=== PATIENT | female | born 1990 | race Caucasian/White ===

== ENCOUNTER 2017-05-20 08:15 | Emergency (ER) | payer MEDICAID, OTHER | END 2017-05-20 09:18 | disposition home or self-care (01) | LOC: FTE 08:15 | DX: R05 Cough (principal) | CPT/HCPCS: 99283; Z7502 ==

== ENCOUNTER 2017-07-15 14:34 | Emergency (ER) | payer MEDICAID ==
[2017-07-15] MEDS: ALBUTEROL 0.083% (NEB) 2.5 MG/3 ML AMP HHN (16:08)
[2017-07-15] MEDS: IPRATROPIUM (NEB) 0.5 MG/2.5 ML AMP HHN (16:30)
== END 2017-07-15 18:49 | disposition home or self-care (01) ==
LOC: FTE 14:34
DX: J20.9 Acute bronchitis, unspecified (principal); R06.02 Shortness of breath
CPT/HCPCS: 71045; 93005; 94664; 99284-25

== ENCOUNTER 2018-07-10 10:41 | Emergency (ER) | payer MEDICAID ==
[2018-07-10] MEDS: ACETAMINOPHEN 325 MG TAB PO (11:50)
== END 2018-07-10 12:49 | disposition home or self-care (01) ==
LOC: FTE 10:41
DX: J10.1 Influenza due to other identified influenza virus with other respiratory manifestations (principal)
CPT/HCPCS: 87400; 99283

== ENCOUNTER 2018-07-31 18:07 | Inpatient (IN) | payer MEDICAID ==
[~2018-07-31 18:07] MED LIST: PHENYLephrine 10 MG INJ
[2018-07-31] MEDS: LACTATED RINGER'S 1,000 ML IV (18:55)
[2018-07-31] MEDS ORDERED: OXYTOCIN 30 UNITS/LR 500 ML IV ×2 (19:00→22:16)
[2018-07-31] MEDS ORDERED: MISOPROSTOL 200 MCG TAB PR (19:00)
[2018-07-31] MEDS ORDERED: METHYLERGONOVINE 0.2 MG INJ IM (19:00)
[2018-07-31] MEDS ORDERED: CARBOPROST 250 MCG INJ IM (19:00)
[2018-07-31] MEDS ORDERED: CEFAZOLIN 2 GM/50 ML (PMX) 50 ML IVPB (19:00)
[2018-07-31 19:02] LABS: ADD MAN DIFF? NO
[2018-07-31 19:06] LABS: BASOPHILS % 0.3 % (0.0-2.0); EOSINOPHILS # 0.2 10^3/ul (0.0-0.5); EOSINOPHILS % 1.5 % (0.0-7.0); HEMOGLOBIN 12.2 g/dl (12.0-16.0); LYMPHOCYTES # 2.3 10^3/ul (0.8-2.9); LYMPHOCYTES % 20.2 % (15.0-51.0); MEAN CORPUSCULAR HEMOGLOBIN 27.4 pg (29.0-33.0); MEAN CORPUSCULAR HGB CONC 33.9 g/dl (32.0-37.0); MEAN CORPUSCULAR VOLUME 80.7 fl (82.0-101.0); MEAN PLATELET VOLUME 9.4 fl (7.4-10.4); MONOCYTE # 0.7 10^3/ul (0.3-0.9); NEUTROPHIL # 8.3 10^3/ul (1.6-7.5); NEUTROPHILS % 71.1 % (39.0-77.0); PLATELET COUNT 306 10^3/UL (140-415); RED BLOOD COUNT 4.46 10^6/ul (4.20-5.40); RED CELL DISTRIBUTION WIDTH 14.5 % (11.5-14.5)
[2018-07-31 19:06] LABS: WHITE BLOOD COUNT 11.6 10^3/ul (4.8-10.8)
[2018-07-31 19:26] LABS: INR 0.94; PROTIME 12.7 Sec (11.9-14.9)
[2018-07-31 19:27] LABS: PARTIAL THROMBOPLASTIN TIME 26.8 Sec (23.0-35.0)
[2018-07-31 19:54] LABS: HEPATITIS B SURFACE ANTIGEN NEGATIVE (NEGATIVE)
[2018-07-31] MEDS: CITRIC ACID/NA CITRATE 30 ML CUP PO (20:11)
[2018-07-31] MEDS ORDERED: morphine SULFATE/PF (10 MG/10 ML) INJ (22:16)
[2018-07-31] MEDS ORDERED: KETOROLAC 30 MG INJ (22:16)
[2018-07-31] MEDS ORDERED: METOCLOPRAMIDE 10 MG INJ (22:16)
[2018-07-31] MEDS ORDERED: ONDANSETRON 4 MG INJ (22:16)
[2018-08-01] MEDS ORDERED: ONDANSETRON 4 MG INJ IV ×2
[2018-08-01] MEDS ORDERED: DIPHENHYDRAMINE 50 MG INJ IV ×2
[2018-08-01] MEDS ORDERED: morphine (1 MG/ML) 10ML SYRINGE IV ×3
[2018-08-01] MEDS ORDERED: morphine 2 MG INJ IV ×3
[2018-08-01] MEDS ORDERED: NALOXONE (0.4 MG/ML) INJ IV
[2018-08-01] MEDS: OXYTOCIN 30 UNITS/LR 500 ML IV ×2 (00:26→04:31)
[2018-08-01] MEDS: DEXTROSE 5%-LR 1,000 ML IV ×3 (02:02→14:12)
[2018-08-01] MEDS ORDERED: OXYTOCIN 30 UNITS/LR 500 ML IV (02:30)
[2018-08-01] MEDS ORDERED: METHYLERGONOVINE 0.2 MG INJ IM (02:30)
[2018-08-01] MEDS ORDERED: CARBOPROST 250 MCG INJ IM (02:30)
[2018-08-01] MEDS ORDERED: METHYLERGONOVINE 0.2 MG TAB PO (02:30)
[2018-08-01] MEDS ORDERED: MISOPROSTOL 200 MCG TAB PR (02:30)
[2018-08-01 08:23] LABS: ADD MAN DIFF? NO
[2018-08-01 08:33] LABS: WHITE BLOOD COUNT 11.5 10^3/ul (4.8-10.8)
[2018-08-01 08:34] LABS: BASOPHILS % 0.1 % (0.0-2.0); EOSINOPHILS # 0.1 10^3/ul (0.0-0.5); EOSINOPHILS % 0.6 % (0.0-7.0); HEMATOCRIT 29.5 % (37.0-47.0); HEMOGLOBIN 9.7 g/dl (12.0-16.0); LYMPHOCYTES # 1.7 10^3/ul (0.8-2.9); LYMPHOCYTES % 14.7 % (15.0-51.0); MEAN CORPUSCULAR HEMOGLOBIN 26.9 pg (29.0-33.0); MEAN CORPUSCULAR HGB CONC 32.9 g/dl (32.0-37.0); MEAN CORPUSCULAR VOLUME 81.7 fl (82.0-101.0); MEAN PLATELET VOLUME 9.6 fl (7.4-10.4); MONOCYTE # 0.6 10^3/ul (0.3-0.9); MONOCYTES % 4.9 % (0.0-11.0); NEUTROPHIL # 9.1 10^3/ul (1.6-7.5); NEUTROPHILS % 79.1 % (39.0-77.0); PLATELET COUNT 238 10^3/UL (140-415); RED BLOOD COUNT 3.61 10^6/ul (4.20-5.40); RED CELL DISTRIBUTION WIDTH 14.3 % (11.5-14.5)
[2018-08-01] MEDS ORDERED: DIPHTH/TET/ACEL PERTUSS (ADULT) 0.5 ML VIAL IM* (11:00)
[2018-08-01 14:44] LABS: RAPID PLASMA REAGIN NONREACTIVE (NR)
[2018-08-01] MEDS: KETOROLAC 30 MG INJ IV (17:28)
[2018-08-01] MEDS: IBUPROFEN 800 MG TAB PO (23:06)
[2018-08-01] MEDS: HYDROCODONE/APAP (5/325) TAB PO (23:06)
[2018-08-01] MEDS: SENNA/DOCUSATE NA (8.6MG/50MG) TAB PO (23:09)
[2018-08-02] MEDS: DEXTROSE 5%-LR 1,000 ML IV ×2 (01:16→02:02)
[2018-08-02] MEDS ORDERED: IBUPROFEN 800 MG TAB PO (06:00)
[2018-08-02] MEDS ORDERED: HYDROCODONE/APAP (5/325) TAB PO ×2 (06:00)
[2018-08-02] MEDS: IBUPROFEN 800 MG TAB PO ×3 (06:11→23:30)
[2018-08-02] MEDS: HYDROCODONE/APAP (5/325) TAB PO ×3 (06:11→23:31)
[2018-08-02] MEDS: LANOLIN HPA 1 PKT TOP (09:18)
[2018-08-02] MEDS: SENNA/DOCUSATE NA (8.6MG/50MG) TAB PO ×2 (09:18→23:30)
[2018-08-02] MEDS: MAGNESIUM HYDROXIDE 30ML CUP PO (21:00)
[2018-08-03] MEDS: IBUPROFEN 800 MG TAB PO ×2 (06:02→14:35)
[2018-08-03] MEDS: HYDROCODONE/APAP (5/325) TAB PO ×2 (06:02→14:35)
[2018-08-03] MEDS: SENNA/DOCUSATE NA (8.6MG/50MG) TAB PO (08:37)
[2018-08-03] MEDS: DIPHTH/TET/ACEL PERTUSS (ADULT) 0.5 ML VIAL IM* (09:00)
[2018-08-03] MEDS: MEASLES,MUMPS,RUBELLA VACCINE INJ SC* (09:00)
== END 2018-08-03 15:07 | disposition home or self-care (01) | DRG 788 ==
LOC: PP1 08-01 01:57 → L-D 18:07
PROVIDERS: Obstetrics & Gynecology
PROC: 10D00Z1 Extraction of Products of Conception, Low, Open Approach (ICD-10-PCS; principal; 2018-07-31 20:00)
PROC: 4A1HXCZ Monitoring of Products of Conception, Cardiac Rate, External Approach (ICD-10-PCS; 2018-07-31 20:00)
DX: O34.211 Maternal care for low transverse scar from previous cesarean delivery (principal); Z3A.39 39 weeks gestation of pregnancy; Z37.0 Single live birth
CPT/HCPCS: 85025; 85610; 85730; 86592; 86850; 86900; 86901; 87340; 99464